=== PATIENT | female | born 1990 | race Hispanic/Latino ===

== ENCOUNTER 2017-08-16 21:42 | Emergency (ER) | payer MEDICAID ==
[~2017-08-16 21:42] MED LIST: ACET1TAB12 PO; DOCU-116 PO; IBUP-2070 PO; IBUP-2071 PO
[2017-08-16 22:09] LABS: APPEARANCE,URINE CLOUDY (CLEAR); BILIRUBIN,URINE NEGATIVE (NEGATIVE); COLOR,URINE YELLOW (YELLOW); GLUCOSE, URINE (UA) NEGATIVE (NEGATIVE); KETONES,URINE NEGATIVE (NEGATIVE); LEUKOCYTE ESTERASE ,URINE NEGATIVE (NEGATIVE); NITRATE,URINE NEGATIVE (NEGATIVE); OCCULT BLOOD,URINE NEGATIVE (NEGATIVE); PROTEIN,URINE NEGATIVE (NEGATIVE); UROBILINOGEN,URINE 0.2 mg/dL (0.2-1.0)
[2017-08-16 22:19] LABS: BACTERIA,URINE Few /HPF (None Seen); MUCUS,URINE Moderate LPF (None Seen); RBC,URINE 0-1 /HPF (0-1); SQUAMOUS EPITHELIAL CELL,UR Moderate /HPF (0-2)
[2017-08-16 22:20] LABS: HYALINE CASTS, URINE 0-1 /LPF (0-1 /LPF)
[2017-08-16 22:22] LABS: HCG,QUAL RESULT NEGATIVE (NEGATIVE)
[2017-08-16 22:33] LABS: RAPID GROUP A STREP NEGATIVE (NEGATIVE)
== END 2017-08-16 22:43 | disposition home or self-care (01) ==
LOC: EDH 21:42
DX: J06.9 Acute upper respiratory infection, unspecified (principal)
CPT/HCPCS: 81001; 81025; 87088; 87186; 87804; 87880